=== PATIENT | female | born 1980 | race Caucasian/White ===

== ENCOUNTER 2016-10-27 19:42 | Emergency (ER) | payer SELFPAY ==
[2016-10-27] MEDS ORDERED: Dexamethasone Sodium Phos 4 mg/mL Vial IVP STA (20:14)
[2016-10-27] MEDS ORDERED: Sodium Chloride 0.9% 1,000 ML IV ONE (20:14)
--- NOTE | 2016-10-27 20:30 | ED Physician Chart ---
Chief Complaint/HPI - Patient Information Date Seen:: 10/27/16 Time Seen:: 19:45 Chief Complaint:: abdominal pain History of Present Illness:: 36-year-old female released from residential several days ago. Went on a binge using multiple drugs including alcohol, complains of acute, constant, aching, worse with cough, nonradiating, moderate to severe, 8 out of 10 at worst, lower abdominal pain 2 days. Had some associated nausea and vomiting earlier today which is now resolved. Denies fevers, chest pain, palpitations, acute vision changes, headache, dysuria. Reports having constipation. Allergies:: Allergies Allergy/AdvReac Type Severity Reaction Status Date / Time No Known Allergies Allergy Verified 10/27/16 20:07 Vitals:: Vital Signs - 8 hr 10/27/16 19:50 Temp 98.1 F HR 109 RR 18 BP 158/67 O2 Sat % 97 Historian:: Patient Review:: Nurse's Note Reviewed Review of Systems - Review of Systems Other: Complete system review otherwise unremarkable except as noted in history of present illness. Past Medical History - Past Medical History Past Medical History: No significant medical hx Family History: None Social History: Non Smoker, Alcohol, Illicit Drug Use, Other Surgical History: None Psychiatricy History: None Medication: None Family Medical History - Family Member Mother History Unknown: Yes Ethnicity: Non- Physical Exam - Physical Examination Other:: INITIAL VITAL SIGNS: Reviewed by me GENERAL: Alert and interactive. No acute distress HEAD: Head is normocephalic and atraumatic EYES: EOMI. PERRL. No scleral icterus. No conjunctival injection ENT: Moist mucous membranes. NECK: Supple. No masses. Full range of motion RESPIRATORY: No tachypnea. Clear breath sounds bilaterally. No wheezing, rales, or rhonchi CV: Regular rate and rhythm. No murmurs, rubs, or gallops ABDOMEN: Soft, non-distended, tenderness to palpation of the general lower quadrant. No guarding. No rebound. No masses. EXTREMITIES: No deformity. No cyanosis. No edema. SKIN: Warm and dry. No obvious rashes. NEUROLOGIC: Alert and oriented. Face is symmetric. Speech is normal. Moves all extremities equally. Motor and sensory distally intact. Labs/Radiology/EKG Results - Lab Results Results: Lab Results 10/27/16 10/27/16 10/27/16 Range/Units 19:50 20:45 20:45 WBC 12.8 H (4.8-10.8) Th/cmm RBC 4.16 (3.80-5.10) Mil/cmm Hgb 12.5 (11.7-15.5) gm/dL Hct 36.9 (35.0-45.0) % MCV 88.5 (81-100) fl MCH 30.0 (27.0-31.0) pg MCHC Differential 33.9 (28.0-36.0) pg RDW 11.8 (11.5-20.0) % Plt Count 232 (150-400) Th/cmm MPV 9.4 fl Neutrophils % 84.7 H (40.0-80.0) % Lymphocytes % 6.1 L (20.0-50.0) % Monocytes % 8.6 (2.0-10.0) % Eosinophils % 0.3 (0.0-5.0) % Basophils % 0.3 (0.0-2.0) % PT 10.2 (9.5-11.5) SECONDS INR 0.98 (0.5-1.4) PTT (Actin FS) 30.1 (26.0-38.0) SECONDS Sodium (136-145) mEq/L Potassium (3.5-5.1) mEq/L Chloride (98-107) mEq/L Carbon Dioxide (21.0-31.0) mEq/L Anion Gap (7.0-16.0) BUN (7-25) mg/dL Creatinine (0.6-1.2) mg/dL Est GFR ( Amer) (>90) ml/min Est GFR (Non-Af Amer) ml/min BUN/Creatinine Ratio Glucose (70-105) mg/dL Whole Bld Lactic Acid (0.60-1.99) mmol/L Calcium (8.6-10.3) mg/dL Total Bilirubin (0.3-1.0) mg/dL AST (13-39) U/L ALT (7-52) U/L Alkaline Phosphatase (34-104) U/L Creatine Kinase (30-223) U/L Total Protein (6.0-8.3) gm/dL Albumin (3.7-5.3) gm/dL Globulin gm/dL Albumin/Globulin Ratio (1.0-1.8) Lipase 15 (11-82) U/L Serum , Qual (NEGATIVE) 10/27/16 10/27/16 10/27/16 Range/Units 20:45 20:45 20:45 WBC (4.8-10.8) Th/cmm RBC (3.80-5.10) Mil/cmm Hgb (11.7-15.5) gm/dL Hct (35.0-45.0) % MCV (81-100) fl MCH (27.0-31.0) pg MCHC Differential (28.0-36.0) pg RDW (11.5-20.0) % Plt Count (150-400) Th/cmm MPV fl Neutrophils % (40.0-80.0) % Lymphocytes % (20.0-50.0) % Monocytes % (2.0-10.0) % Eosinophils % (0.0-5.0) % Basophils % (0.0-2.0) % PT (9.5-11.5) SECONDS INR (0.5-1.4) PTT (Actin FS) (26.0-38.0) SECONDS Sodium 135 L (136-145) mEq/L Potassium 3.1 L (3.5-5.1) mEq/L Chloride 99 (98-107) mEq/L Carbon Dioxide 30.0 (21.0-31.0) mEq/L Anion Gap 9.1 (7.0-16.0) BUN 16 (7-25) mg/dL Creatinine 0.7 (0.6-1.2) mg/dL Est GFR ( Amer) > 60.0 (>90) ml/min Est GFR (Non-Af Amer) > 60.0 ml/min BUN/Creatinine Ratio 22.9 Glucose 105 (70-105) mg/dL Whole Bld Lactic Acid 1.09 (0.60-1.99) mmol/L Calcium 9.0 (8.6-10.3) mg/dL Total Bilirubin 0.8 (0.3-1.0) mg/dL AST 17 (13-39) U/L ALT 13 (7-52) U/L Alkaline Phosphatase 71 (34-104) U/L Creatine Kinase 23 L (30-223) U/L Total Protein 7.1 (6.0-8.3) gm/dL Albumin 3.7 (3.7-5.3) gm/dL Globulin 3.4 gm/dL Albumin/Globulin Ratio 1.1 (1.0-1.8) Lipase (11-82) U/L Serum , Qual NEGATIVE (NEGATIVE) - Radiology Results Results: Single AP VIEW Portable Chest X-ray was interpreted independently and contemporaneously by Justin Ford MD: No cardiomegaly Normal mediastinum No lung infiltrates No pneumothorax No soft tissue or bony abnormalities CT abdomen and pelvis without contrast per radiology Large degree of inflammation in the pelvis ? Pelvic inflammatory disease Edema lower bowel wall Large uterus Ultrasound pelvis Left ovarian cyst - EKG Interpretations Comments:: 12-lead EKG Interpretation by Justin Ford MD: Sinus tachycardia with ventricular rate of 101 beats per minute Normal axis Normal intervals No acute ST or T wave changes. No obvious STEMI ED Septic Shock - . Is Septic Shock (SBP<90, OR Lactate>4 mmol\\L) present?: No - <6hrs of presentation: Vital Signs: Vital Signs - 8 hr 10/27/16 19:50 Temp 98.1 F HR 109 RR 18 BP 158/67 O2 Sat % 97 Reassessment (Disposition) - Reassessment Reassessment:: Blood pressure was noted to be elevated over 120/80. There were no signs of hypertension. Discussed the findings with the patient and recommended that the patient follow up with the primary care physician regarding the elevated blood pressure. 36-year-old female who spent the last 2 years of her life incarcerated. Recently released from residential and went on "alliance party binge" presented with acute lower quadrant abdominal pain 2 days. Labs show hypokalemia, otherwise unremarkable. Gave by mouth potassium. CT assisted with pelvic inflammatory disease. Ultrasound confirms large left ovarian cyst. Findings consistent with PID. Discussed all findings with patient's. Discussed treatment plan. Gave 1 g of IV Rocephin. Gave 1 g of by mouth azithromycin. Gave prescription for azithromycin 1 g to be given 2 doses 1 week apart. Also for Flagyl 500 mg twice a day 14 days. Follow-up PCP 1-2 days. Return to ER precautions given. Patient understands and agrees the plan. Reassessment Condition:: Improved - Diagnosis Diagnosis:: Pelvic inflammatory disease Ovarian cyst Elevated blood pressure without the diagnosis of hypertension - Aftercare/Follow up Instructions Aftercare/Follow-Up Instructions:: Counseled pt regarding lab results/diagnosis & need follow up, Refer to Discharge Instructions Medication Prescribed:: Azithromycin Flagyl - Patient Disposition Discharge/Transfer:: Home Time:: 23:23 Condition at Disposition:: Improved ED Discharge Plan - Patient Disposition Admit/Discharge/Transfer: PT DISCHARGED HOME Condition at Disposition: Improved Instructions: Pelvic Inflammatory Disease, [id number], Ovarian Cyst Additional Instructions: Follow up with [facility] Address: [address] [place] [id number]
[2016-10-27 21:09] LABS: % BASOPHILS 0.3 % (0.0-2.0); % EOSINOPHILS 0.3 % (0.0-5.0); % LYMPHOCYTES 6.1 % (20.0-50.0); % MONOCYTES 8.6 % (2.0-10.0); % NEUTROPHILS 84.7 % (40.0-80.0); HEMATOCRIT 36.9 % (35.0-45.0); HEMOGLOBIN 12.5 gm/dL (11.7-15.5); MEAN CELL VOLUME 88.5 fl (81-100); MEAN CORPUSCULAR HGB CONC 33.9 pg (28.0-36.0); MEAN PLATELET VOLUME 9.4 fl; NEUTROPHILE ABSOLUTE 10.9 Th/cmm (1.8-8.0); PLATELET COUNT 232 Th/cmm (150-400); RED BLOOD COUNT 4.16 Mil/cmm (3.80-5.10); RED CELL DISTRIBUTION WIDTH 11.8 % (11.5-20.0)
[2016-10-27] MEDS ORDERED: Dexamethasone Sodium Phos 10 mg/mL PF Vial ONE (21:13)
[2016-10-27 21:19] LABS: WHITE BLOOD COUNT 12.8 Th/cmm (4.8-10.8)
[2016-10-27 21:26] LABS: INR 0.98 (0.5-1.4); PROTHROMBIN TIME (TEST) 10.2 SECONDS (9.5-11.5)
[2016-10-27 21:38] LABS: ALB/GLOB RATIO 1.1 (1.0-1.8); ALKALINE PHOSPHATASE 71 U/L (34-104); ANION GAP 9.1 (7.0-16.0); BILIRUBIN,TOTAL 0.8 mg/dL (0.3-1.0); BUN - UREA NITROGEN 16 mg/dL (7-25); BUN/CREATININE RATIO 22.9; CHLORIDE 99 mEq/L (98-107); CREATININE - SERUM 0.7 mg/dL (0.6-1.2); GLUCOSE 105 mg/dL (70-105); POTASSIUM SERUM 3.1 mEq/L (3.5-5.1); SGOT 17 U/L (13-39); SGPT/ALT 13 U/L (7-52); SODIUM SERUM 135 mEq/L (136-145)
[2016-10-27] MEDS ORDERED: Potassium Chloride 20 mEq ER Tab PO ONE ×2 (21:52→22:10)
[2016-10-27] MEDS ORDERED: cefTRIAXone 1 GM in Sodium Chloride 0.9% 50 ML IV ONE (23:19)
[2016-10-28 00:03] LABS: URINE BILIRUBIN SMALL (NEGATIVE); URINE COLOR YELLOW; URINE GLUCOSE (UA) NEGATIVE (NEGATIVE)
[2016-10-28 00:05] LABS: URINE BLOOD TRACE (NEGATIVE); URINE KETONE TRACE mg/dL (NEGATIVE); URINE PROTEIN 100 mg/dL (NEGATIVE)
[2016-10-28 00:06] LABS: URINE BACTERIA MODERATE /hpf (NONE SEEN); URINE EPITHELIAL CELLS MANY /lpf (FEW)
[2016-10-28 00:09] LABS: AMPHETAMINE URINE POSITIVE (NEGATIVE); BARBITURATES URINE NEGATIVE (NEGATIVE); METHADONE URINE NEGATIVE (NEGATIVE)
--- NOTE | 2016-10-28 09:09 | Diagnostic Imaging Report ---
CHEST X-RAY: AP view INDICATION: pain COMPARISON: None FINDINGS: There is no focal consolidation or pleural effusions The heart is normal in size. The osseous structures demonstrate no acute abnormalities. External material is seen along the right breast region. IMPRESSION: No acute cardiopulmonary disease.
--- NOTE | 2016-10-28 09:38 | Diagnostic Imaging Report ---
CT abdomen and pelvis without intravenous contrast Indication: Generalized lower abdominal pain Comparison: Pelvic ultrasound the same day, Technique: Axial images were obtained from the lung bases to the bilateral proximal femurs without IV contrast. Coronal reconstructions were made. total DLP: [id number], [id number] FINDINGS: Hypoventilatory changes of the lung bases are noted. Assessment of the solid organs is limited due to lack of IV contrast. No evidence of focal hepatic lesions. No focal splenic or pancreatic lesions. No focal adrenal lesions. Faint left medullary nephrocalcinosis is noted. No evidence of hydronephrosis. There are diffuse inflammatory changes seen throughout the pelvis. There is fluid density area along the left hemipelvis which represent prominent bowel loops or possibly hydrosalpinx. Small amount of free fluid is also seen within the pelvis. Mild inflammatory changes are also seen surrounding bowel loops. No evidence of acute appendicitis. No evidence of free abdominal air. The osseous structures demonstrate no acute abnormalities. IMPRESSION: Diffuse inflammatory changes along the pelvis. There is fluid density structure along the left hemipelvis which may resent prominent bowel loops or possibly hydrosalpinx. Note exam was limited due to lack of IV and oral contrast. Clinical correlation and follow-up is recommended including follow-up ultrasound. Inflammatory changes surrounding the bowel loops along the lower abdomen and pelvis which may be related to inflammatory changes seen within the pelvis. Other etiologies such as colitis or enteritis would be considered less likely. No evidence of acute appendicitis. Faint left-sided medullary nephrocalcinosis.
--- NOTE | 2016-10-28 09:45 | Diagnostic Imaging Report ---
Ultrasound pelvis HISTORY: Pelvic pain. Beta hCG is negative. LMP is 10/17/2016 COMPARISON: CT abdomen and pelvis performed the same day Technique: Longitudinal and transverse sonographic sector images of the pelvis were obtained transabdominally and transvaginally. FINDINGS: The uterus measures 7.8 x 3.4 x 5.3 cm and demonstrates a heterogeneous echotexture. Endometrial echo complex measures 5 mm containing fluid. There is a heterogeneous area along the upper body of the uterus measuring 1.1 x 0.5 cm. The right ovary measures 4.1 x 1.8 x 2.2 cm. Right ovarian follicular cystic changes are seen the largest measuring 2 cm. The left ovary cannot be well delineated on this exam. Large left adnexal heterogeneous mass is seen measuring 8.6 x 5 cm. Vascular flow to right ovary is noted. No significant free fluid identified by ultrasound. IMPRESSION: Large heterogeneous left adnexal mass. Differential diagnosis includes possible hydrosalpinx with debris when compared to recent CT examination. Other pelvic inflammatory processes may be considered. An endometrioma may also be considered. Ovarian malignancy is less likely but cannot be excluded. Clinical correlation and short-term follow-up is recommended. Fluid noted within the endometrial cavity. The significance of this finding should be correlated clinically. Findings suggestive of a small fibroid along the upper portion of the uterus. Poor visualization of the left ovary Right ovarian follicular cystic changes.
== END 2016-10-28 00:10 | disposition home or self-care (01) ==
LOC: ER 19:42
DX: N73.9 Female pelvic inflammatory disease, unspecified (principal); N83.202 Unspecified ovarian cyst, left side; R03.0 Elevated blood-pressure reading, without diagnosis of hypertension
CPT/HCPCS: 36415-UA; 71010-TC; 76856-TC; 80053-TC; 80307; 81001-TC; 81003-TC; 81025-TC; 82550-TC; 83605; 83690-TC; 85025-TC; 85610-TC; 85730-TC; 93005; 96375; J0696; J1885; J2405; J7030